=== PATIENT | female | born 1980 | race Caucasian/White ===

== ENCOUNTER 2017-09-12 16:17 | Emergency (ER) | payer OTHER ==
[~2017-09-12] VITALS: Ht 160 cm; Wt 75.0 kg
--- NOTE | 2017-09-12 16:27 | PHYS DOC ---
Adult General Chief Complaint Chief Complaint: VAGINAL BLEEDING HPI HPI Patient is a 37-year-old female presenting to the emergency department for evaluation of abdominal cramping and vaginal bleeding. She says that she has not been sexually active for 3 years but then had sex on Sunday morning unprotected and has been bleeding since that time. She says that she is changing a pad every 3 hours and it is not a large amount of blood but she is concerned. Cramping is midline and intermittent. Patient is in no obvious distress with normal vital signs. 08/20/2017 2 08/20/2017 HYDROCODON-ACETAMINOPHEN 5-325 10.0 2 PH DIEGO [id number] [facility] (6157) 0 25.0 [place] 07/15/2017 2 07/15/2017 HYDROCODON-ACETAMINOPHN 10-325 40.0 13 NAVID ALS [id number] [facility] (6157) 0 30.769 [place] 07/05/2017 1 07/05/2017 HYDROCODON-ACETAMINOPHN 10-325 21.0 7 RI GEL [id number] [facility] (6157) 0 30.0 [place] 06/21/2017 2 06/21/2017 HYDROCODON-ACETAMINOPHN 10-325 42.0 14 [place] GEL [id number] [facility] ([id number]) 0 30.0 [place] 06/05/2017 1 06/05/2017 HYDROCODON-ACETAMINOPHN 10-325 42.0 14 [place] GEL [id number] [facility] (6157) 0 30.0 [place] 05/22/2017 1 05/22/2017 HYDROCODON-ACETAMINOPHN 10-325 42.0 14 [place] GEL [id number] [facility] (6157) 0 30.0 [place] Review of Systems Review of Systems Constitutional: Denies fever or chills [] Respiratory: Denies cough or shortness of breath [] Cardiovascular: No additional information not addressed in HPI [] GI: + abdominal pain. No nausea, vomiting, bloody stools or diarrhea [] : Denies dysuria or hematuria [] Musculoskeletal: Denies back pain or joint pain [] All other systems were reviewed and found to be within normal limits, except as documented in this note. Physical Exam Physical Exam Constitutional: Well developed, well nourished, no acute distress, non-toxic appearance. [] HENT: Normocephalic, atraumatic, bilateral external ears normal, oropharynx moist, no oral exudates, nose normal. [] Eyes: PERRLA, EOMI, conjunctiva normal(no pallor). Cardiovascular:Heart rate regular rhythm, no murmur [] Lungs & Thorax: Bilateral breath sounds clear to auscultation [] Abdomen: Bowel sounds normal, soft, no tenderness, no masses, no pulsatile masses. Irritated friable vaginal mucosa on left vaginal vault. No obvious herpetic lesions noted But there is an abnormal white line Internally with a fairly large amount of vaginal discharge. No active bleeding noted but I can see where there would be some blood earlier. EKG EKG [] Radiology/Procedures Radiology/Procedures [] Course & Med Decision Making Course & Med Decision Making Patient describes the pain as burning and sharp which could be a herpetic lesion however I do not see the typical blistering of herpes rather this may be at least with some vaginitis. Will treat with Diflucan orally and then topical lidocaine with all swabs being collected. Dragon Disclaimer Dragon Disclaimer This electronic medical record was generated, in whole or in part, using a voice recognition dictation system. Departure Departure: Impression: Primary Impression: Vaginitis Disposition: 01 HOME, SELF-CARE Condition: STABLE Patient Instructions: Vaginitis, Fxhu-kx-Ldys Scripts Lidocaine Hcl (LIDOCAINE HCL) 5 Ml Jel..ml. 5 ML MM Q3-4HRS Y for PAIN, #1 MISC Prov: TIANNA HINSON DO 09/12/17 Problem Qualifiers Primary Impression: Vaginitis Chronicity: acute Qualified Codes: N76.0 - Acute vaginitis TIANNA HINSON DO Sep 12, 2017 16:27
[2017-09-12 16:36] VITALS: BP 140/100
[2017-09-12] MEDS ORDERED: LIDO5JEL3 MM (17:09)
[2017-09-12] MEDS ORDERED: FLUCONAZOLE 100 MG TABLET. PO ONE (17:15)
[2017-09-12 17:51] LABS: BACTERIA,URINE 0 /HPF (0-FEW); BILIRUBIN,URINE NEG (NEG); CLARITY,URINE CLEAR; COLOR,URINE STRAW; GLUCOSE,URINE NEG (NEG); NITRITE,URINE NEG (NEG); RBC,URINE RARE /HPF (0-2); SQUAMOUS EPITHELIAL CELL,UR OCC /LPF; U PREG PATIENT NEGATIVE (NEG); UROBILINOGEN,URINE 0.2 mg/dL (0.2 mg/dL)
[2017-09-13 14:11] LABS: CHLAMYDIA PROBE Negative (Negative)
== END 2017-09-12 17:22 | disposition home or self-care (01) ==
LOC: ER 16:17
DX: N76.0 Acute vaginitis (principal)
CPT/HCPCS: 36415; 81001; 81025; 87491; 87591; 99284; Q0111

== ENCOUNTER 2019-02-04 17:41 | Emergency (ER) | payer OTHER ==
[~2019-02-04] VITALS: Ht 160 cm; Wt 75.0 kg
[~2019-02-04 17:41] MED LIST: LIDO5JEL3 MM
[2019-02-04] MEDS ORDERED: HYOSCYAMINE 0.125 MG TAB.RAPDIS PO ONE (18:30)
[2019-02-04] MEDS ORDERED: PROCHLORPERAZINE 10 MG/2 ML VIAL. IV ONE (18:30)
[2019-02-04] MEDS ORDERED: IV NORMAL SALINE 1,000ML 1,000 ML IV SCH (18:30)
--- NOTE | 2019-02-04 18:35 | PHYS DOC ---
Past History Past Medical History: Asthma, Other Past Surgical History: Appendectomy, , Hysterectomy, Other Alcohol Use: None Drug Use: None Adult General Chief Complaint Chief Complaint: NAUSEA/VOMITING/DIARRHEA HPI HPI Patient is a 38-year-old female who presents with right upper quadrant pain, nausea vomiting, and diarrhea, that started earlier today. Patient felt lightheaded after her nausea and vomiting episode. Increased sleepiness. No fever. No blood in the stool or emesis. No travel. Patient has a history of Crohn's and multiple previous abdominal surgeries. Nothing seems to make the discomfort better or worse.[] Review of Systems Review of Systems Constitutional: Denies fever or chills [] Eyes: Denies change in visual acuity, redness, or eye pain [] HENT: Denies nasal congestion or sore throat [] Respiratory: Denies cough or shortness of breath [] Cardiovascular: No chest pain or palpitations[] GI: See history of present illness[] : Denies dysuria or hematuria [] Musculoskeletal: Denies back pain or joint pain [] Integument: Denies rash or skin lesions [] Neurologic: Denies headache, focal weakness or sensory changes [] Endocrine: Denies polyuria or polydipsia [] All other systems were reviewed and found to be within normal limits, except as documented in this note. Allergies Allergies Allergies Coded Allergies Type Severity Reaction Last Updated Verified NSAIDS (Non-Steroidal Anti-Inflamma Allergy Unknown 09/12/17 Yes Penicillins Allergy Unknown 09/12/17 Yes ketorolac Allergy Unknown 09/12/17 Yes Physical Exam Physical Exam Constitutional: Well developed, well nourished, no acute distress, non-toxic appearance. [] HENT: Normocephalic, atraumatic, bilateral external ears normal, oropharynx moist, no oral exudates, nose normal. [] Eyes: PERRLA, EOMI, conjunctiva normal, no discharge. [] Neck: Normal range of motion, no tenderness, supple, no stridor. [] Cardiovascular:Heart rate regular rhythm, no murmur [] Lungs & Thorax: Bilateral breath sounds clear to auscultation [] Abdomen: Bowel sounds normal, soft, right upper quadrant tenderness, no rebound , no guarding, no rigidity, sits up without any difficulty, no masses, no pulsatile masses. [] Skin: Warm, dry, no erythema, no rash. [] Back: No tenderness, no CVA tenderness. [] Extremities: No tenderness, no cyanosis, no clubbing, ROM intact, no edema. [] Neurologic: Alert and oriented X 3, normal motor function, normal sensory function, no focal deficits noted. [] Psychologic: Affect normal, judgement normal, mood normal. [] Current Patient Data Vital Signs Vital Signs Date Time Temp Pulse Resp B/P (MAP) Pulse Ox O2 Delivery O2 Flow Rate FiO2 02/04/19 18:29 97.5 73 20 100 Room Air EKG EKG EKG shows a sinus rhythm at 62 bpm, normal axis, normal QTC, no ST elevations. No old EKG available for comparison. Interpreted by me at 1901[] Radiology/Procedures Radiology/Procedures Indication:RIGHT SIDED ABDOMINAL PAIN
ALLERGY TO IODINE
HX OF SBO, RESECTION TECHNIQUE: CT abdomen and pelvis without IV contrast with multiplanar reformats. COMPARISON: None FINDINGS: Limited evaluation of solid abdominal and pelvic organs due to lack of IV contrast. Heart is normal in size. No pericardial or pleural effusion. Clear lung bases. Diffuse hepatic steatosis. Otherwise, noncontrast appearance of the liver, pancreas, adrenals within normal limits. Status post cholecystectomy. 2 low attenuating lesions are seen in the spleen, largest measuring 1.3 x 1.2 cm. Status post cholecystectomy. 2 mm nonobstructing right renal stone. Simple cyst in the left kidney measuring 1.6 cm. No enlarged retroperitoneal or pelvic adenopathy. No free pelvic fluid or ascites. No bowel obstruction. Status post partial proximal colectomy. No pneumoperitoneum. Status post hysterectomy. Urinary bladder demonstrates no radiopaque stones. Evidence of medical hernia repair. No suspicious bony lesion. IMPRESSION: Limited evaluation of solid abdominal and pelvic organs due to lack of IV contrast. 1. Nonobstructing right renal stone. 2. No evidence of bowel obstruction. 3. Hepatic steatosis.[] Course & Med Decision Making Course & Med Decision Making Pertinent Labs and Imaging studies reviewed. (See chart for details) ED course and medical decision making: Patient arrived, was placed in bed, and tolerated exam well. She was given IV fluids as well as antiemetics and antispasmodics which significantly improved her pain and vomiting. She was transported to and from [place] with any complications. After the return of the laboratory and imaging studies, she was able to perform orthostatic vital signs with out any lightheadedness or dizziness. Do not see any evidence of an acute coronary syndrome. No significant elected to light abnormality. No evidence of oral intake intolerance. No urinary tract infection. Patient has had a hysterectomy so no possibility of /hyperemesis gravidarum. No evidence of perforation or obstruction. Findings were discussed with the patient who voiced understanding. All questions were answered. She was discharged in improved condition.[] Dragon Disclaimer Dragon Disclaimer This electronic medical record was generated, in whole or in part, using a voice recognition dictation system. Departure Departure: Impression: Primary Impression: Nausea, vomiting, and diarrhea Disposition: HOME, SELF-CARE Condition: IMPROVED Referrals: PCPNICHOLAS (PCP) Patient Instructions: Diet for Diarrhea, Adult, Nausea and Vomiting Additional Instructions: Drink plenty of fluids, frequent small sips. No fatty foods, no milk, and no pepper for the next 48 hours. For the next 48 hours eat a diet rich in carbohydrates with foods such as bananas, rice, applesauce, and toast. Follow- up with your regular doctor in 2 days. If you do not have regular doctor list of local clinics will be provided for you. Return to the ER if unable to tolerate liquids or any other concerns. Scripts Hyoscyamine Sulfate (LEVSIN) 0.125 Mg Tablet 0.125 MG PO QID for abdominal pain/cramping, #30 TAB Prov: LEANDER CORRALES DO 02/04/19 Prochlorperazine Maleate (Compazine) 10 Mg Tablet 10 MG PO QIDPRN PRN for NAUSEA/VOMITING, #30 TAB Prov: LEANDER CORRALES DO 02/04/19 LEANDER CORRALES DO Feb 04, 2019 18:35
[2019-02-04] MEDS ORDERED: IOHEXOL 240 MG/ML 50ML VIAL. PO ONE (18:45)
[2019-02-04] MEDS ORDERED: IOHEXOL 300 MG/ML 75 ML VIAL. IV ONE (18:45)
[2019-02-04 19:12] LABS: BASO % 0 % (0-3); EOS # 0.7 x10^3/uL (0.0-0.7); EOS % 5 % (0-3); HEMATOCRIT 39.8 % (36.0-47.0); HEMOGLOBIN 13.3 g/dL (12.0-15.5); LYMPH # 1.7 x10^3/uL (1.0-4.8); LYMPH % 13 % (24-48); MEAN CORPUSCULAR HEMOGLOBIN 31 pg (25-35); MEAN CORPUSCULAR HGB CONC 33 g/dL (31-37); MEAN CORPUSCULAR VOLUME 92 fL (79-100); MONO # 0.6 x10^3/uL (0.0-1.1); MONO % 5 % (0-9); NEUT % 77 % (31-73); PLATELET COUNT 407 x10^3/uL (140-400); RED BLOOD COUNT 4.32 x10^6/uL (3.50-5.40); RED CELL DISTRIBUTION WIDTH 14.5 % (11.5-14.5)
[2019-02-04 19:22] LABS: INFLUENZA A PATIENT NEGATIVE (NEGATIVE); INFLUENZA B PATIENT NEGATIVE (NEGATIVE)
[2019-02-04 19:30] LABS: ALBUMIN 3.4 g/dL (3.4-5.0); ALBUMIN/GLOBULIN RATIO 0.9 (1.0-1.7); CALCIUM 9.1 mg/dL (8.5-10.1); CREATININE 0.7 mg/dL (0.6-1.0); GFR 92.7; POTASSIUM 3.2 mmol/L (3.5-5.1); TOTAL BILIRUBIN 0.4 mg/dL (0.2-1.0)
--- NOTE | 2019-02-04 19:58 | RAD ---
PQRS Compliance statement: One or more of the following individualized dose reduction techniques were utilized for this examination: 1. Automated exposure control. 2. Adjustment of the mA and/or kV according to patient size. 3. Use of iterative reconstruction technique. Indication:RIGHT SIDED ABDOMINAL PAIN
ALLERGY TO IODINE
HX OF SBO, RESECTION TECHNIQUE: CT abdomen and pelvis without IV contrast with multiplanar reformats. COMPARISON: None FINDINGS: Limited evaluation of solid abdominal and pelvic organs due to lack of IV contrast. Heart is normal in size. No pericardial or pleural effusion. Clear lung bases. Diffuse hepatic steatosis. Otherwise, noncontrast appearance of the liver, pancreas, adrenals within normal limits. Status post cholecystectomy. 2 low attenuating lesions are seen in the spleen, largest measuring 1.3 x 1.2 cm. Status post cholecystectomy. 2 mm nonobstructing right renal stone. Simple cyst in the left kidney measuring 1.6 cm. No enlarged retroperitoneal or pelvic adenopathy. No free pelvic fluid or ascites. No bowel obstruction. Status post partial proximal colectomy. No pneumoperitoneum. Status post hysterectomy. Urinary bladder demonstrates no radiopaque stones. Evidence of medical hernia repair. No suspicious bony lesion. IMPRESSION: Limited evaluation of solid abdominal and pelvic organs due to lack of IV contrast. 1. Nonobstructing right renal stone. 2. No evidence of bowel obstruction. 3. Hepatic steatosis. Electronically signed by: Hilario Samuels DO (02/04/2019 7:56 PM) [facility]
[2019-02-04 20:54] LABS: BACTERIA,URINE 0 /HPF (0-FEW); BILIRUBIN,URINE NEG (NEG); CLARITY,URINE CLEAR; COLOR,URINE YELLOW; GLUCOSE,URINE NEG (NEG); NITRITE,URINE NEG (NEG); RBC,URINE 0 /HPF (0-2); SQUAMOUS EPITHELIAL CELL,UR OCC /LPF; UROBILINOGEN,URINE 0.2 mg/dL (0.2 mg/dL); WBC,URINE 0 /HPF (0-4)
[2019-02-04] MEDS ORDERED: HYOS0.1264 PO (21:30)
[2019-02-04] MEDS ORDERED: PROC10TA57 PO (21:30)
[2019-02-04 21:40] VITALS: BP 137/85
--- NOTE | 2019-02-05 06:30 | EKG ---
[address] [address] Test Date: 2019-02-04 Test Time: 19:00:32 Pat Name: CALVIN SALAZAR Department: Room: Gender: F Drip Pumper: : 1980 Requested By: LEANDER CORRALES Order Number: [id number] Reading MD: Graham Khan MD Measurements Intervals [place] Rate: 62 P: 42 UT: 156 QRS: 26 QRSD: 88 T: 18 QT: 430 QTc: 439 Interpretive Statements SINUS RHYTHM Electronically Signed On 02-06-2019 9:13:01 CDT by Graham Khan MD
== END 2019-02-04 21:45 | disposition home or self-care (01) ==
LOC: ER 17:41
DX: R10.11 Right upper quadrant pain (principal); R11.2 Nausea with vomiting, unspecified; R42 Dizziness and giddiness; J45.909 Unspecified asthma, uncomplicated; K50.90 Crohn's disease, unspecified, without complications; Z90.89 Acquired absence of other organs; Z98.890 Other specified postprocedural states; Z90.710 Acquired absence of both cervix and uterus; Z88.6 Allergy status to analgesic agent; Z88.0 Allergy status to penicillin; Z88.8 Allergy status to other drugs, medicaments and biological substances
CPT/HCPCS: 36415; 74176; 80053; 81001; 83690; 84484; 85025; 85610; 87804; 93005; 96361; 96374; 99284; J0780; J7030